=== PATIENT | female | born 1985 | race Caucasian/White ===

== ENCOUNTER 2019-01-25 06:24 | Day surgery (SDC) | payer OTHER, BC ==
[2019-01-25] MEDS ORDERED: LACTATED RINGER'S 1,000 ML IV ×2 (08:00→09:00)
[2019-01-25] MEDS ORDERED: PROPOFOL 20 ML (08:14)
[2019-01-25] MEDS ORDERED: LIDOCAINE 2% (SDV) 5 ML INJ (08:14)
[2019-01-25] MEDS ORDERED: SUCCINYLCHOLINE CHLORIDE 100 MG/5 ML SYG IV (08:14)
[2019-01-25] MEDS ORDERED: FENTAnyl 50 MCG/ML VIAL (08:14)
[2019-01-25] MEDS ORDERED: CEFAZOLIN 1 GM INJ (08:14)
[2019-01-25] MEDS ORDERED: DEXAMETHASONE 4 MG/ML 5 ML INJ (08:16)
[2019-01-25] MEDS ORDERED: ONDANSETRON 4 MG INJ (08:16)
[2019-01-25] MEDS ORDERED: FAMOTIDINE 20 MG INJ (08:16)
[2019-01-25] MEDS ORDERED: METOCLOPRAMIDE 10 MG INJ (08:16)
[2019-01-25] MEDS ORDERED: OXYCODONE/ACETAMINOPHEN (5/325) TAB PO ×2 (09:00)
[2019-01-25] MEDS ORDERED: ACETAMINOPHEN 325 MG TAB PO (09:00)
[2019-01-25] MEDS ORDERED: MEPERIDINE 25 MG INJ IV (09:00)
[2019-01-25] MEDS ORDERED: FENTAnyl 50 MCG/ML VIAL IV ×3 (09:00)
[2019-01-25] MEDS ORDERED: ONDANSETRON 4 MG INJ IV (09:00)
== END 2019-01-25 11:54 | disposition home or self-care (01) ==
LOC: SDS 06:24
DX: T83.32XA Displacement of intrauterine contraceptive device, initial encounter (principal); Y83.9 Surgical procedure, unspecified as the cause of abnormal reaction of the patient, or of later complication, without mention of misadventure at the time of the procedure; Y92.89 Other specified places as the place of occurrence of the external cause; R10.9 Unspecified abdominal pain; E66.9 Obesity, unspecified
CPT/HCPCS: 58562; 84703; 86850; 86870; 86900; 86901; 88300; 88305